=== PATIENT | male | born 1995 | race African-American/Black ===

== ENCOUNTER 2021-05-16 09:30 | Emergency (ER) | payer BC ==
[~2021-05-16] VITALS: Ht 182.9 cm; Wt 101.7 kg
[2021-05-16] MEDS ORDERED: PREDNISONE20 MG PO (10:42)
== END 2021-05-16 10:52 | disposition home or self-care (01) ==
LOC: FSED 09:53
DX: R05.9 Cough, unspecified (principal); J20.9 Acute bronchitis, unspecified; R06.00 Dyspnea, unspecified
CPT/HCPCS: 71045; 93005; 99283